=== PATIENT | female | born 1985 | race Caucasian/White ===

== ENCOUNTER 2022-11-30 17:06 | Emergency (ER) | payer MEDICAID, SELFPAY ==
--- NOTE | ~2022-11-30 | CT_ITS ---
EXAMINATION: CT ABDOMEN AND PELVIS WITHOUT CONTRAST CLINICAL INFORMATION: Left lower quadrant and left flank pain COMPARISON: None available. TECHNIQUE: Multidetector volumetric imaging was performed from the superior aspect of the liver through the pubic symphysis. Sagittal and coronal reformatted images were obtained on the technologist's workstation. This CT examination was performed using dose optimization techniques as appropriate, variously including the following: *Automated exposure control *Adjustment of mA and/or kV according to patient size (this includes techniques or standardized protocols for targeted exams where dose is matched to indication/reason for exam; i.e. extremities or head) *Use of iterative reconstruction technique DLP: 764 mGy-cm FINDINGS: LUNG BASES: The visualized lung bases are unremarkable. LIVER, GALLBLADDER, AND BILIARY TREE: Fatty liver. The liver is slightly enlarged. The gallbladder is normal. No biliary duct dilatation. PANCREAS: Unremarkable. SPLEEN: Unremarkable. ADRENAL GLANDS: Unremarkable. KIDNEYS AND URETERS: 5 x 7 mm central left renal stone in the renal pelvis. No hydronephrosis. No ureteral dilatation or ureteral stone. Normal right kidney. BLADDER: Unremarkable. GASTROINTESTINAL TRACT: The small and large bowel are unremarkable. The appendix is unremarkable. ABDOMINAL WALL: No significant hernia is appreciated. LYMPH NODES: Normal. VASCULAR: Unremarkable. PELVIC VISCERA: Unremarkable. OSSEOUS STRUCTURES: Unremarkable. CT/CT abdomen pelvis wo IV con IMPRESSION: 5 x 7 mm central left renal stone in the renal pelvis. No hydronephrosis. Enlarged fatty liver. Fleischner guidelines were followed.
--- NOTE | 2022-11-30 18:04 | ED_ITS ---
HPI - Abdominal Pain General Chief Complaint: Abdominal Pain Stated Complaint: abd pain/ blood in urine Time Seen by Provider: 11/30/22 18:53 Source: patient Mode of arrival: ambulatory Limitations: no limitations History of Present Illness HPI narrative: 36-year-old female presents with left flank pain. Pain started yesterday. The pain is moderate nature. The pain radiates anteriorly. Sometimes it is worsene d by position. Is not associated with nausea vomiting. There has been no fevers or chills. She has had hematuria but denies any urinary frequency, urgency or dysuria. She has never had pain like this before. No history of kidney stones. She denies any diarrhea or constipation. Patient describes her pain as sharp in achy in nature. Related Data Previous Rx's Medication Instructions Recorded cephalexin 500 mg capsule 500 mg PO Q12H #20 caps 11/30/22 ibuprofen 600 mg tablet 600 mg PO Q8H PRN pain #14 tabs 11/30/22 ondansetron 4 mg disintegrating 4 mg PO Q8H PRN nausea and 11/30/22 tablet vomiting #10 tabs Allergies Allergy/AdvReac Type Severity Reaction Status Date / Time No Known Allergies Allergy Verified 11/30/22 20:55 Review of Systems Review of Systems CONSTITUTIONAL: Denies weight loss, fever and chills. HEENT: Denies changes in vision and hearing. RESPIRATORY: Denies SOB and cough. CV: Denies palpitations no CP. GI: Positive abdominal pain, negative nausea, vomiting and diarrhea. : Denies dysuria and urinary frequency. Positive hematuria, positive flank pain MSK: Denies myalgia and joint pain. SKIN: Denies rash and pruritus. NEUROLOGICAL: Denies headache and syncope. PSYCHIATRIC: Denies recent changes in mood. Denies anxiety and depression. All other ROS are negative unless in HPI [facility] Social History Social History Alcohol intake: current Alcohol type: other Smoked in Last 30 Days: Yes Use of substances other than those prescribed or required for medical reasons: Yes Substance Use Type: Marijuana Substance Use Type Other:: pt states edible to help her sleep Substance Use Frequency: Occasionally Advance Directives: No Advance Directives Information Provided: No Patient : No Physical Exam ED Vital Signs: Vital Signs - 24 hr 11/30/22 18:05 11/30/22 18:36 11/30/22 21:17 Temperature 98.0 F 98.1 F 97.8 F Pulse Rate 77 67 84 Respiratory Rate 14 16 Blood Pressure 131/83 134/75 119/75 Pulse Oximetry 98 96 98 Oxygen Delivery Method Room Air Room Air Room Air 11/30/22 21:50 Temperature 98.4 F Pulse Rate 77 Respiratory Rate 18 Blood Pressure 125/80 Pulse Oximetry Oxygen Delivery Method BMI result Body Mass Index 35.9 GEN: Well developed, no acute distress, alert, oriented HEENT: Normocephalic, atraumatic, normal external ears, nose appears normal, no oropharyngeal edema or exudates Eyes: Normal to appearance Neck: Supple, no lymphadenopathy Respiratory: Talks in complete sentences, no respiratory distress, clear to auscultation bilaterally Cardiovascular: Regular rate and rhythm, no murmurs rubs or gallops Abdomen: Soft, nontender, nondistended, no guarding, no rebound Back: No CVA tenderness Extremities: No clubbing cyanosis or edema Neurologic: No focal neurologic deficits, cranial nerves 2-12 intact, strength is 5/5 bilaterally Skin: No rash Course Course Course Narrative: RME - 36 yo female presents to the ER today evaluation of left lower abdominal pain, left flank pain and blood in the urine that started yesterday. No other urinary symptoms, fever, chills, N/V/D. Plan: lab workup, UA, CT abd/pelvis Reevaluation(s) Reevaluation #1: Discussed discharge instructions with the patient. She is aware of all the results. She will take antibiotics for 10 days. She has been referred to Urology for the large to the kidney stone. Time: 21:58 Medical Decision Making Medical Decision Making [facility] Narrative: 36-year-old female presents with left flank pain radiating anteriorly associated with hematuria. The differential diagnosis predominantly includes pyelonephritis, UTI, ureterolithiasis. Less likely to be diverticulitis, colitis, epiploic appendagitis, appendicitis, nephritic or nephrotic syndrome. Will check routine laboratory analysis, CT scan, urinalysis. Will provide patient with analgesia using Toradol. Will provide patient with IV fluids assuming it is kidney stone. Differential Diagnosis Differential Diagnoses: The differential diagnosis associated with the pr esentation includes (See above) Lab Data [facility] Lab Attestation statement: I reviewed the patient's lab results. 11/30/22 18:56 11/30/22 18:56 Labs: Lab Results 11/30/22 11/30/22 11/30/22 Range/Units 18:45 18:46 18:56 WBC 7.5 (4.8-10.8) X10*3/uL RBC 4.82 (4.20-5.50) X10*6/uL Hgb 13.9 (12.0-16.0) g/dl Hct 41.4 (37.0-47.0) % MCV 85.9 (80.0-98.0) fL MCH 28.8 (27.0-33.0) pg MCHC 33.6 (31.0-35.0) g/dl RDW 13.4 (11.0-16.0) % Plt Count 392 (160-400) X10*3/uL MPV 9.9 (9.4-12.3) fL Immature Gran % (Auto) 0.3 (0.0-0.4) % Neut % (Auto) 65.5 (45-73) % Lymph % (Auto) 26.1 (20-40) % Charles % (Auto) 7.4 (2-11) % Eos % (Auto) 0.4 (0-4) % Baso % (Auto) 0.3 (0-2) % Lymph # (Auto) 2.0 (1.2-4.9) X10*3/uL Charles # (Auto) 0.6 (0.1-1.2) X10*3/uL Eos # (Auto) 0.0 (0.0-0.4) X10*3/uL Baso # (Auto) 0.0 (0.0-0.2) X10*3/uL Abs Immat Gran (auto) 0.02 (0.00-0.03) X10*3/uL Absolute Neuts (auto) 4.9 (2.0-8.3) x10*3/uL Absolute Nucleated RBC 0.000 (0.0-0.012) X10*3/uL Nucleated RBC % (auto) 0.0 (0.0-0.2) /100WBC Sodium (135-145) mmol/L Potassium (3.3-5.1) mmol/L Chloride (96-108) mmol/L Carbon Dioxide (22-29) mmol/L Anion Gap (12-20) BUN (9-16) mg/dL Creatinine (0.5-1.4) mg/dL Estim Creat Clear Calc Estimated GFR Random Glucose (60-115) mg/dL Calcium (8.4-10.2) mg/dL Magnesium (1.6-2.6) mg/dL Total Bilirubin (0.0-1.0) mg/dL Direct Bilirubin (0.0-0.5) mg/dL AST (5-31) U/L ALT (0-31) U/L Alkaline Phosphatase (39-117) U/L Total Protein (6.5-8.0) g/dL Albumin (3.5-5.0) g/dL Lipase (8-78) U/L Beta HCG, Quant mIU/mL Urine Color BROWN Urine Appearance Turbid Urine pH 6.5 (5.0-9.0) Ur Specific [place] >= 1.030 H (1.005-1.025) Urine Protein 100 (2+) H (Neg-Trace) mg/dL Urine Glucose (UA) Negative (Negative) mg/dL Urine Ketones Trace (Negative) mg/dL Urine Blood Large (3+) H (Negative) Urine Nitrite Positive H (Negative) Ur Leukocyte Esterase Trace H (Negative) Urine RBC >20 H (0-2) /HPF Urine WBC 21-50 H (0-5) /HPF Ur Squamous Epith Cells 11-20 (0-2) /HPF Urine Bacteria 4+ (None Seen) Hyaline Casts 0-2 (0-2) /LPF Urine Test NEGATIVE (NEGATIVE) 11/30/22 11/30/22 Range/Units 18:56 18:56 WBC (4.8-10.8) X10*3/uL RBC (4.20-5.50) X10*6/uL Hgb (12.0-16.0) g/dl Hct (37.0-47.0) % MCV (80.0-98.0) fL MCH (27.0-33.0) pg MCHC (31.0-35.0) g/dl RDW (11.0-16.0) % Plt Count (160-400) X10*3/uL MPV (9.4-12.3) fL Immature Gran % (Auto) (0.0-0.4) % Neut % (Auto) (45-73) % Lymph % (Auto) (20-40) % Charles % (Auto) (2-11) % Eos % (Auto) (0-4) % Baso % (Auto) (0-2) % Lymph # (Auto) (1.2-4.9) X10*3/uL Charles # (Auto) (0.1-1.2) X10*3/uL Eos # (Auto) (0.0-0.4) X10*3/uL Baso # (Auto) (0.0-0.2) X10*3/uL Abs Immat Gran (auto) (0.00-0.03) X10*3/uL Absolute Neuts (auto) (2.0-8.3) x10*3/uL Absolute Nucleated RBC (0.0-0.012) X10*3/uL Nucleated RBC % (auto) (0.0-0.2) /100WBC Sodium 140 (135-145) mmol/L Potassium 3.7 (3.3-5.1) mmol/L Chloride 107 (96-108) mmol/L Carbon Dioxide 23 (22-29) mmol/L Anion Gap 14 (12-20) BUN 10 (9-16) mg/dL Creatinine 0.69 (0.5-1.4) mg/dL Estim Creat Clear Calc 123.5 Estimated GFR > 60 Random Glucose 95 (60-115) mg/dL Calcium 9.2 (8.4-10.2) mg/dL Magnesium 2.0 (1.6-2.6) mg/dL Total Bilirubin 0.6 (0.0-1.0) mg/dL Direct Bilirubin 0.1 (0.0-0.5) mg/dL AST 34 H (5-31) U/L ALT 62 H (0-31) U/L Alkaline Phosphatase 118 H (39-117) U/L Total Protein 7.5 (6.5-8.0) g/dL Albumin 4.2 (3.5-5.0) g/dL Lipase 18 (8-78) U/L Beta HCG, Quant < 2 mIU/mL Urine Color Urine Appearance Urine pH (5.0-9.0) Ur Specific [place] (1.005-1.025) Urine Protein (Neg-Trace) mg/dL Urine Glucose (UA) (Negative) mg/dL Urine Ketones (Negative) mg/dL Urine Blood (Negative) Urine Nitrite (Negative) Ur Leukocyte Esterase (Negative) Urine RBC (0-2) /HPF Urine WBC (0-5) /HPF Ur Squamous Epith Cells (0-2) /HPF Urine Bacteria (None Seen) Hyaline Casts (0-2) /LPF Urine Test (NEGATIVE) Independent Interpretation I performed an independent interpretation of an: CT Scan (Small left UVJ stone, large left kidney stone, nonobstructive) Radiology Impression Discussion of test interpretation with radiology: I have reviewed the radiologist's reading. Radiologist Impression: CT/CT abdomen pelvis wo IV con IMPRESSION: 5 x 7 mm central left renal stone in the renal pelvis. No hydronephrosis. Enlarged fatty liver.? ? Fleischner guidelines were followed. Dictated By: Adriana Toscano MD Signed By: <Electronically signed by Adriana Toscano MD in [place]> 11/30/222121 Prescription Management I considered prescription management with: Pain Medication and Antibiotic Medications Administered Discontinued Medications Generic Name Dose Route Start Last Admin Trade Name Freq PRN Reason Stop Dose Admin Sodium Chloride 1,000 mls @ 999 mls/hr 11/30/22 19:45 11/30/22 21:51 Ns IV 11/30/22 20:45 999 mls/hr .Q1H1M DIA Infusion Ceftriaxone Sodium 1 gm/ 50 mls @ 100 mls/hr 11/30/22 19:49 11/30/22 21:51 Sodium Chloride IV 11/30/22 20:18 Infused ONCE ONE Infusion Ketorolac Tromethamine 15 mg 11/30/22 19:44 11/30/22 20:56 Ketorolac Tromethamine 15 Mg/Ml Vial IVPUSH 11/30/22 19:45 15 mg ONCE ONE Administration Discharge Plan Discharge Clinical Impression: Pyelonephritis, Kidney stone Patient Disposition: Home, Self-Care Instructions: Kidney Stones (ED), Kidney Infection (ED) Prescriptions: New cephalexin 500 mg capsule 500 mg PO Q12H Qty: 20 0RF ibuprofen 600 mg tablet 600 mg PO Q8H PRN (Reason: pain) Qty: 14 0RF ondansetron 4 mg tablet,disintegrating 4 mg PO Q8H PRN (Reason: nausea and vomiting) Qty: 10 0RF Referrals: Joselo Bolanos MD [Physician] - 5 days Interventions: ED Discharge Assessment Last Done: 11/30/22 21:53
[2022-11-30 18:05] VITALS: BP 131/83; PULSE 77; TEMP 36.7; O2SAT 98; BMI 35.9
[2022-11-30 18:36] VITALS: BP 134/75; PULSE 67; RESP 14; TEMP 36.7; O2SAT 96
--- NOTE | 2022-11-30 18:56 | PC.NURSE ---
IV access obtained in the right forearm, labs and urine sent, pt lying comfortably, VSS on the monitor, call osborne within reach, will continue to monitor.
[2022-11-30 19:00] LABS: MANUAL DIFF FLAG NO
[2022-11-30 19:07] LABS: Basophils Percent Auto 0.3 % (0-2); Eosinophils Percent Auto 0.4 % (0-4); Hematocrit 41.4 % (37.0-47.0); Hemoglobin 13.9 g/dl (12.0-16.0); Imm Gran Abs Auto 0.02 X10*3/uL (0.00-0.03); Imm Gran Pct Auto 0.3 % (0.0-0.4); Lymphocytes Percent Auto 26.1 % (20-40); Mean Corpuscular HGB Conc 33.6 g/dl (31.0-35.0); Mean Corpuscular Hemoglobin 28.8 pg (27.0-33.0); Mean Corpuscular Volume 85.9 fL (80.0-98.0); Mean Platelet Volume 9.9 fL (9.4-12.3); Monocytes Absolute Auto 0.6 X10*3/uL (0.1-1.2); Monocytes Percent Auto 7.4 % (2-11); Neutrophils Absolute Auto 4.9 x10*3/uL (2.0-8.3); Neutrophils Percent Auto 65.5 % (45-73); Platelet Count 392 X10*3/uL (160-400); Red Blood Count 4.82 X10*6/uL (4.20-5.50); Red Cell Distribution Width 13.4 % (11.0-16.0); White Blood Count 7.5 X10*3/uL (4.8-10.8)
[2022-11-30 19:10] LABS: UPreg QC Valid YES
[2022-11-30 19:13] LABS: Urine Pregnancy NEGATIVE (NEGATIVE)
[2022-11-30 19:14] LABS: Appearance Urine Turbid; Color Urine BROWN; Glucose Urine UA Negative (Negative); Leukocyte Esterase Urine Trace (Negative); PH 6.5 (5.0-9.0); Specific Gravity - Urine >= 1.030 (1.005-1.025); UMIC TRIGGER UACC YES; Urine Blood Large (3+) (Negative); Urine Ketones Trace mg/dL (Negative); Urine Protein 100 (2+) mg/dL (Neg-Trace)
[2022-11-30 19:20] LABS: Bacteria Urine 4+ (None Seen); Hyaline Casts Urine 0-2 /LPF (0-2); RBC Urine >20 /HPF (0-2); WBC Urine 21-50 /HPF (0-5)
[2022-11-30 19:23] LABS: Nitrite Urine Positive (Negative); UACC Culture Trigger YES
[2022-11-30 19:27] LABS: Alanine Aminotransferase 62 U/L (0-31); Albumin Level 4.2 g/dL (3.5-5.0); Alkaline Phosphatase 118 U/L (39-117); Anion Gap 14 (12-20); Aspartate Amino Transferase 34 U/L (5-31); Bilirubin Direct 0.1 mg/dL (0.0-0.5); Bilirubin Total 0.6 mg/dL (0.0-1.0); Blood Urea Nitrogen 10 mg/dL (9-16); Calcium 9.2 mg/dL (8.4-10.2); Carbon Dioxide 23 mmol/L (22-29); Chloride 107 mmol/L (96-108); Creatinine Clr Calc Pharmacy 123.5; Estimated Glomerular Filt Rate > 60; Glucose Random 95 mg/dL (60-115); Lipase 18 U/L (8-78); Potassium 3.7 mmol/L (3.3-5.1); Sodium 140 mmol/L (135-145); Total Protein 7.5 g/dL (6.5-8.0)
[2022-11-30 19:31] LABS: HCG Quantitative < 2 mIU/mL
--- NOTE | 2022-11-30 20:50 | PC.NURSE ---
patient in bed with eyes open patient have no issues at this time patient is receiving all medications ordered by the doctor patient vitals are stable at this time patient went to have a ct scan done patient will continue to be monitored for safety
[2022-11-30] MEDS: cefTRIAXone sodium 1 GM in 0.9 % Sodium Chloride 50 ML IV (20:56)
[2022-11-30] MEDS: 0.9 % Sodium Chloride 1,000 ML 999 ML IV (20:56)
[2022-11-30] MEDS: Ketorolac Tromethamine 15 MG/ML VIAL IVPUSH (20:56)
--- NOTE | 2022-11-30 21:00 | PC.NURSE ---
this rn assisted primary rn eugene in medication administration. this rn discussed with dr young if pt needed blood cultures prior to administration of iv antibiotics. per dr young blood cultures not needed. this rn made primary rn aware
[2022-11-30 21:17] VITALS: BP 119/75; PULSE 84; RESP 16; TEMP 36.6; O2SAT 98
[2022-11-30 21:50] VITALS: BP 125/80; PULSE 77; RESP 18; TEMP 36.9
--- NOTE | 2022-11-30 21:52 | PC.NURSE ---
patient in the process of being discharged to go home patient is aware
== END 2022-11-30 22:01 | disposition home or self-care (01) ==
PROVIDERS: Physician Assistant; Emergency Provider Emergency Medicine
DX: N12 Tubulo-interstitial nephritis, not specified as acute or chronic (principal); N20.0 Calculus of kidney; R31.9 Hematuria, unspecified; F12.90 Cannabis use, unspecified, uncomplicated
CPT/HCPCS: 36415; 74176; 80048; 80076; 81001; 81003; 81025; 83690; 83735; 84702; 85025; 87086; 96361; 96365; 96375; 99284; 99285; J0696; J1885